=== PATIENT | female | born 1965 | race Caucasian/White ===

== ENCOUNTER 2023-04-07 12:17 | Emergency (ER) | payer MEDICAID, OTHER ==
--- NOTE | 2023-04-07 12:55 | ED Physician Documentation ---
PD HPI URI - Stated complaint Stated Complaint: C+,COUGH,CONGESTION,EAR PX - Chief complaint Chief Complaint: General - History obtained from History obtained from: Patient - Additional information Additional information: Patient is a 58-year-old female presenting for evaluation of COVID. Patient states that she tested positive last . Today is day 5. 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 She says that she started having symptoms on Friday night. She says that the fever and bodyaches are better. She continues with some cough and congestion. She is tolerating p.o. intake. She denies feeling short of air. She does report feeling pressure in her ears. Review of Systems Constitutional: reports: Myalgias Nose: reports: Congestion Cardiac: denies: Chest pain / pressure Respiratory: reports: Cough. denies: Dyspnea GI: denies: Abdominal Pain, Vomiting PD PAST MEDICAL HISTORY - Past Medical History Past Medical History: No Cardiovascular: None Respiratory: None Neuro: None Endocrine/Autoimmune: None GI: None CHEMICAL APPLICATOR: None : None HEENT: None Psych: None Musculoskeletal: None Derm: None - Past Surgical History Past Surgical History: No - Present Medications Home Medications: Ambulatory Orders Medication Instructions Recorded Confirmed Amoxicillin/Potassium Clav 1 each PO BID 10 Days tablet 05/04/15 [Augmentin 875-125 Tablet] Ondansetron Odt [Zofran] 4 mg TL Q6H PRN #15 tablet 02/27/16 Oseltamivir [Tamiflu] 75 mg PO BID #10 capsule 02/27/16 dexAMETHasone [Decadron] 4 mg PO DAILY #5 tablet 02/27/16 Fluticasone [Flonase] 1 sprays GOKUL BID PRN #16 gm 04/07/23 guaiFENesin/CODEINE [Robitussin AC] 5 ml PO Q6H PRN #120 ml 04/07/23 - Allergies Allergies/Adverse Reactions: Allergies Allergy/AdvReac Type Severity Reaction Status Date / Time No Known Drug Allergies Allergy Verified 04/07/23 12:24 - Social History Does the pt smoke?: No Smoking Status: Never smoker Does the pt drink ETOH?: No Does the pt have substance abuse?: No - Immunizations Immunizations are current?: Yes - POLST Patient has POLST: No PD ED PE NORMAL - General General: Alert and oriented X 3, No acute distress, Well developed/nourished - HEENT HEENT: Atraumatic, Moist mucous membranes, Pharynx benign. No: Ears normal (Bilateral serous otitis, no erythema or dullness) - Neck Neck: Supple, no meningeal sign, No bony TTP - Cardiac Cardiac: RRR, Strong equal pulses - Respiratory Respiratory: No respiratory distress, Clear bilaterally - Abdomen Abdomen: Soft, Non tender, Non distended - Derm Derm: Warm and dry - Neuro Neuro: Normal speech Results - Vitals Vitals: Vital Signs - 24 hr 04/07/23 04/07/23 12:24 13:03 Temperature 37.1 C 37.0 C Heart Rate 93 88 Respiratory 18 18 Rate Blood Pressure 140/88 H 135/79 H O2 Saturation 100 99 Oxygen O2 Source Room air PD Medical Decision Making - ED course ED course: Patient is a 58-year-old female with recent positive home COVID test. She is requesting a return to work note. However on my exam she still has congestion and a dry cough. 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 Per CDC guidelines recommend an additional 5 days of quarantine as she appears to have more moderate symptoms. She is agreeable to this. Her lung sounds are clear. Did offer medications to help with her symptoms which she is agreeable to.Patient counseled on treatment plan as well as concerning symptoms to return for. Departure - Departure Disposition: 01 Home, Self Care Clinical Impression: COVID-19 Serous otitis media Qualifiers: Chronicity: acute Laterality: bilateral Condition: Stable Instructions: ED Viral Syndrome, ED Otitis Media Serous Adult Prescriptions: Fluticasone [Flonase] 1 sprays GOKUL BID PRN #16 gm PRN Reason: Nasal Congestion guaiFENesin/CODEINE [Robitussin AC] 5 ml PO Q6H PRN #120 ml PRN Reason: Cough Comments: Based on your symptoms today, you should still quarantine for another 5 days for COVID per CDC guidelines. https://www.cdc.gov/coronavirus/2019-ncov/your-health/isolation.html Continue to wear a mask if you are out in public or around other people. I have sent prescriptions to [email or web address] in [place] to help with your symptoms. Please continue to stay hydrated. Return to the emergency department with any worsening symptoms. The cough medication does contain codeine so it can be sedating. Please do not drive or operate machinery while taking the cough medication. Forms: PCP List, Activity restrictions Discharge Date/Time: 04/07/23 13:09
[2023-04-07 13:11] VITALS: BP 135/79; O2SAT 99
== END 2023-04-07 13:09 | disposition home or self-care (01) ==
LOC: ED 12:17
DX: U07.1 COVID-19 (principal); H65.03 Acute serous otitis media, bilateral
CPT/HCPCS: 99282; 99283